=== PATIENT | male | born 1950 | race Caucasian/White ===

== ENCOUNTER 2020-05-11 10:56 | Outpatient (CLI) | payer MEDICARE, OTHER, SELFPAY ==
--- NOTE | ~2020-05-11 | CT_ITS ---
EXAMINATION: CT abdomen wo con DATE: 05/11/2020 11:20 INDICATION: Bladder neck contracture TECHNIQUE: Computed tomography (CT) of the abdomen was performed without intravenous contrast. Automa alessandra exposure control and iterative reconstruction technique were employed. Exam dose: 176.25 mGy-cm total exam DLP. COMPARISON: None. FINDINGS: Emphysematous changes are noted. Mild discoid atelectasis or scarring in the lower lung zon es. Normal heart size. There is trace pericardial fluid. No pleural effusion. Small sliding hiatal hernia. The liver, gallbladder, bile ducts, spleen, pancreas and pancreatic duct are unremarkable. Normal morphology of the adrenal glands. No renal mass lesion is evident on this limited noncontrast examination. No urinary tract calculus or hydroureteronephrosis. Atherosclerotic calcification but normal caliber of the abdominal aorta and common iliac arteries. Sh otty nonenlarged periaortic and mesenteric lymph nodes. No bowel obstruction is evident. Small umbilical hernia. Degenerative changes of the thoracic and lumbar spine. No suspicious osteolytic or osteoblastic lesio ns are noted. The examination does not include the bladder. IMPRESSION: Examination does not include the bladder Emphysema Small sliding hiatal hernia Reviewed, dictated and finalized at [facility]. Reviewed, dictated and finalized at [facility].
== END 2020-05-11 10:57 | disposition home or self-care (01) ==
LOC: ANHIMG 10:59
PROVIDERS: Visit Provider Urology
DX: N32.0 Bladder-neck obstruction (principal); J43.9 Emphysema, unspecified; K44.9 Diaphragmatic hernia without obstruction or gangrene
CPT/HCPCS: 74150

== ENCOUNTER 2024-04-12 11:57 | Outpatient (CLI) | payer MEDICARE, OTHER, SELFPAY ==
--- NOTE | ~2024-04-12 | CT_ITS ---
Non-contrast CT scan of the Abdomen and Pelvis Clinical indication: BPH, urinary obstruction Technique: 2.5 mm axial scans were obtained through the abdomen and pelvis without intravenous or or al contrast. Dose reduction technique was used on this scan by utilizing automated exposure control a nd iterative reconstruction technique. The dose-length product (DLP) was 529.70 mGy-cm. COMPARISON: 05/11/2020 Findings: Images through the lung bases reveal no abnormalities. There is no evidence of renal or ureteral calculi. The kidneys and the ureters are nondilated. The liver, spleen, pancreas, gallbladder, and adrenals appear normal. There are atherosclerotic calci fications of the aorta. There is no evidence of bowel obstruction. Left inguinal hernia contains a focal loop of small bowel. Images through the pelvis were performed. There is no evidence of ascites or lymphadenopathy. Urinary bladder unremarkable. Small bilateral hydroceles present. Prostate gland enlarged. Impression: Left inguinal hernia contains a focal small loop of bowel. Enlarged prostate gland. Small bilateral hydroceles. Reviewed, dictated and finalized at [facility]. Impression: Left inguinal hernia contains a focal small loop of bowel. Enlarged prostate gland. Small bilateral hydroceles.
== END 2024-04-12 11:58 | disposition home or self-care (01) ==
LOC: ANHIMG 12:06
PROVIDERS: Visit Provider Urology
DX: N40.1 Benign prostatic hyperplasia with lower urinary tract symptoms (principal); K40.90 Unilateral inguinal hernia, without obstruction or gangrene, not specified as recurrent; N43.3 Hydrocele, unspecified
CPT/HCPCS: 74176